=== PATIENT | male | born 1940 | race Caucasian/White ===

== ENCOUNTER → 2017-01-20 | Outpatient (CLI) | payer MEDICARE, OTHER ==
--- NOTE | 2017-01-20 14:51 | PCVCIMAG ---
EXAM: 1. MESENTERIC ARTERIAL DUPLEX 2. AORTOILIAC DUPLEX INDICATION: Upper abdominal fullness. Chronic mesenteric ischemia. Mesenteric atherosclerosis. FINDINGS: CELIAC AXIS: No flow limiting stenosis. No branch vessel stenosis. SUPERIOR MESENTERIC ARTERY: 80% stenosis proximal vessel. No branch vessel stenosis. INFERIOR MESENTERIC ARTERY: 40-50% stenosis proximal vessel. No branch vessel stenosis. Mesenteric veins are patent where seen. AORTA: Suprarenal aorta measures maximum diameter of 2.9 cm. There is not a fusiform infrarenal aortic aneurysm. The infrarenal aorta measures maximum diameter of 2.8 cm. No aortic stenosis. RIGHT COMMON ILIAC ARTERY: Maximum diameter is 1.1 cm. No significant stenosis. RIGHT EXTERNAL ILIAC ARTERY: No significant stenosis. LEFT COMMON ILIAC ARTERY: Maximum diameter is 1.3 cm. No significant stenosis. LEFT EXTERNAL ILIAC ARTERY: No significant stenosis. IMPRESSION: No abdominal aortic aneurysm. No aortoiliac stenosis seen. Ectasia of the infrarenal abdominal aorta measuring up to 2.8 cm in greatest dimension. 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 40-50% stenosis proximal inferior mesenteric artery. LOC:[place] [id number]
--- NOTE | 2017-01-20 20:12 | PCVCIMAG ---
APPROVED REPORT Study performed: 01/20/2017 15:08:52 EXAM: Comprehensive 2D, Doppler, and color-flow Echocardiogram Patient Location: Echo lab Status: routine BSA: 2.03 HR: 70 bpmBP: 126/72 mmHg Rhythm: NSR Other Information Study Quality: Adequate Indications Abnormal ECG Cardiomyopathy Hypertension/HDD Hx KS 2D Dimensions LVEF(%): 40.57 (>50%) IVSd: 9.76 (7-11mm)LVOT Diam: 22.06 (18-24mm) LVDd: 58.97 mm PWd: 8.51 (7-11mm) LVDs: 47.09 (25-40mm) Left Atrium: 39.11 (27-40mm) Aortic Root: 29.14 mm LV Single Plane 4CH: 63.90 % LV Single Plane 2CH: 60.15 %Lopez's LVEF: 62.03 % Biplane EF: 60.9 % Volumes Left Atrial Volume (Systole) Single Plane 4CH: 56.59 mLSingle Plane 2CH: 73.09 mL Biplane LA Volume: 68.00 mLLA ESV Index: 34.00 mL/m2 Aortic Valve AoV Peak Sam.: 1.60 m/s AO Peak Gr.: 10.26 mmHgLVOT Max P.19 mmHg LVOT Max V: 0.95 m/s CARINE Vmax: 2.26 cm2 AI Vmax: 3.68 m/s AI Emmons: 1.63 m/s2 AI PHT: 656.37 ms Mitral Valve E/A Ratio: 0.6 MV Decel. Time: 259.86 ms MV E Max Sam.: 0.65 m/s MV A Sam.: 1.15 m/s IVRT: 131.49 ms TDI E/Lateral E': 13.00E/Medial E': 16.25 Medial E' Sam.: 0.04 m/s Lateral E' Sam.: 0.05 m/s Pulmonary Valve PV Peak Sam.: 1.02 m/sPV Peak Gr.: 4.15 mmHg Pulmonary Vein P Vein S: 0.61 m/sP Vein A: 0.44 m/s P Vein D: 0.31 m/sP Vein A Dur.: 114.2 msec P Vein S/D Ratio: 1.97 Tricuspid Valve TR Peak Sam.: 2.57 m/s TR Peak Gr.: 26.43 mmHg TV Vmax: 0.62 m/sPA Pressure: 33.00 mmHg Left Ventricle Left ventricle is mildly dilated. There is normal LV segmental wall motion. There is normal left ventricular wall thickness. Akinesis of the basal-mid inferior wall is seen; consistent with known old KS. Left ventricular systolic function is normal. The left ventricular ejection fraction is within the normal range. LVEF is 60-65%. Grade I - abnormal relaxation pattern. Right Ventricle The right ventricle is normal size. The right ventricular systolic function is normal. Atria Left atrium is at the upper limits of normal. The right atrium size is normal. Aortic Valve Aortic valve is trileaflet. Aortic valve leaflets are sclerotic but open well. Mild aortic regurgitation. There is no aortic valvular stenosis. Mitral Valve There is moderate mitral annular calcification. Mitral valve leaflets are mildly sclerotic. Trace to mild mitral regurgitation. No evidence of mitral valve stenosis. Tricuspid Valve The tricuspid valve is normal in structure. Mild tricuspid regurgitation with a PA pressure of 33mmHg. Pulmonic Valve The pulmonary valve is normal in structure. There is no pulmonic valvular regurgitation. Great Vessels The aortic root is normal in size. The ascending aorta is normal in size. IVC is normal in size and collapses with >50% inspiration Pericardium There is no pericardial effusion. There is no pleural effusion. <Conclusion> LVEF is 60-65%. Left ventricular systolic function is normal. The left ventricular ejection fraction is within the normal range. Grade I - abnormal relaxation pattern. Left atrium is at the upper limits of normal. Aortic valve is trileaflet. Aortic valve leaflets are sclerotic but open well. There is moderate mitral annular calcification. Mitral valve leaflets are mildly sclerotic. Trace to mild mitral regurgitation. Mild tricuspid regurgitation with a PA pressure of 33mmHg. There is no pericardial effusion.
== END | disposition home or self-care (01) ==
LOC: PCVCIMAG 13:40
PROVIDERS: ATTEND Internal Medicine Cardiovascular Disease
DX: I08.3 Combined rheumatic disorders of mitral, aortic and tricuspid valves (principal); I10 Essential (primary) hypertension; R94.31 Abnormal electrocardiogram [ECG] [EKG]; K55.1 Chronic vascular disorders of intestine; K55.059 Acute (reversible) ischemia of intestine, part and extent unspecified; E78.5 Hyperlipidemia, unspecified; I25.2 Old myocardial infarction
CPT/HCPCS: 93306; 93975; 93978

== ENCOUNTER → 2017-02-02 | Outpatient (CLI) | payer MEDICARE, OTHER | END | disposition home or self-care (01) | LOC: PCVCCLINIC 15:35 | PROVIDERS: ATTEND Nuclear Medicine Nuclear Cardiology | DX: Z01.812 Encounter for preprocedural laboratory examination (principal); K55.1 Chronic vascular disorders of intestine; I77.1 Stricture of artery; I25.10 Atherosclerotic heart disease of native coronary artery without angina pectoris; I10 Essential (primary) hypertension; E78.00 Pure hypercholesterolemia, unspecified; F10.10 Alcohol abuse, uncomplicated | CPT/HCPCS: 36415; G0463 ==

== ENCOUNTER → 2017-02-04 | Outpatient (CLI) | payer MEDICARE, OTHER ==
[~2017-02-04] MED LIST: ASPIRIN 325 MG TABLET ONE; CLOPIDOGREL BISULFATE 75 MG TABLET ONE; DIAZEPAM 10 MG TABLET. ONE; EPTIFIBATIDE BOLUS 2,000 MCG/ML 10ML VIAL. IV ONE; HEPARIN SODIUM 5,000 UNIT/ML VIAL for PCVC. ONE; HEPARIN for ARTERIAL LINE 1,500 ML ONE; IOHEXOL 300 MG/ML 100ML VIAL. ONE; IOHEXOL 300 MG/ML 50 ML VIAL. ONE; IOHEXOL 350 MG/ML 100 ML VIAL. ONE; IV NORMAL SALINE 1000ML BAG 1,000 ML ONE; IV NORMAL SALINE 50ML 50 ML ONE; LIDOCAINE 1% Multi-Dose 20 ML VIAL. ONE; MIDAZOLAM HCL/PF 2 MG/2 ML VIAL. ONE; ceFAZolin SODIUM 1 GM VIAL ONE; fentaNYL PF VIAL 100 MCG/2 ML VIAL ONE; hydrALAZINE 20 MG/ML VIAL. ONE
--- NOTE | 2017-02-04 18:03 | PCVCINTER ---
EXAM: 1. AORTOGRAM AND BILATERAL ILIOFEMORAL ANGIOGRAPHY 2. BILATERAL RENAL ANGIOGRAPHY 3. COMPLETE MESENTERIC ANGIOGRAPHY 4. CELIAC STENT PLACEMENT 5. SUPERIOR MESENTERIC ARTERY STENT PLACEMENT INDICATION: Chronic mesenteric ischemia. Mesenteric atherosclerosis. Hypertension. Renal atherosclerosis. PROCEDURE: Procedure and risks of the procedures listed above were discussed with the patient and consent obtained. Risks including but not limited to bleeding, infection, stroke, vascular injury, neurologic injury, embolization, allergic reactions, bowel ischemia requiring resection, and contrast-induced nephropathy requiring dialysis were discussed as appropriate and consent obtained. Patient was placed on the angiography table. IV conscious sedation was utilized with appropriate monitoring from 12:30 PM through 2:00 PM. The right groin was prepped and draped in the normal sterile fashion. Ultrasound was used to interrogate the right groin and demonstrate the right common femoral artery. An ultrasound image was saved. Under ultrasound guidance a 21 gauge needle was used to gain access into the right common femoral artery and a 5F vascular sheath was placed. Catheter was placed into the suprarenal abdominal aorta and abdominal aortic angiogram performed. Catheter was placed into the distal abdominal aorta and bilateral iliofemoral angiography performed. Catheter was placed into the right renal arteries and right renal angiograms performed. Catheter was placed into the left renal arteries and left renal angiograms performed. Catheter was placed into the celiac axis and celiac angiogram performed. Catheter was placed in the superior mesenteric artery and SMA angiogram performed. Catheter was placed into the inferior mesenteric artery and JULIO angiogram performed. Stent placement across the area of high-grade stenosis in the celiac axis was performed with a 7 x 18 Palmaz blue stent with subsequent dilatation up to 8.0 mm. Stent placement across the area of stenosis in the proximal superior mesenteric artery was performed with a 6 x 24 Palmaz blue stent with subsequent dilatation to 8.[address] Bullock joined the procedure and he performed coronary angiography. Please see his separate dictation for details. Catheters and wires removed. Sheath was removed and hemostasis obtained using the FISH device. No immediate complications. FINDINGS: Aortogram: There is one right and one left renal artery. Moderate ectasia infrarenal abdominal aorta without high-grade stenosis. Bilateral iliofemoral angiography: Scattered plaque in both common iliac arteries without significant stenosis. Both external iliac arteries are patent. Both internal iliac arteries are patent. Moderate plaque in the common femoral artery does not cause significant stenosis. Visualized portions of the upper superficial femoral arteries are patent. Right renal artery: Minimal plaque proximal vessel does not cause significant stenosis. Left renal artery: Minimal plaque proximal vessel does not cause significant stenosis. Celiac axis: 80% stenosis proximal vessel. Distal branches are patent. Following stent placement good patency has been restored. Superior mesenteric artery: 80% irregular stenosis proximal superior mesenteric artery. Distal branches are patent. Following stent placement good patency has been restored. Inferior mesenteric artery: 70% focal stenosis at the origin of this vessel. Otherwise inferior mesenteric artery shows good patency throughout. 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 70% stenosis at the origin of the inferior mesenteric artery with this vessel otherwise showing good patency. follow up LOC:[id number]
== END | disposition home or self-care (01) ==
LOC: PCVCINTER 09:30
PROVIDERS: ATTEND Nuclear Medicine Nuclear Cardiology
DX: K55.1 Chronic vascular disorders of intestine (principal); I70.1 Atherosclerosis of renal artery; I10 Essential (primary) hypertension; E78.5 Hyperlipidemia, unspecified; E78.00 Pure hypercholesterolemia, unspecified; I25.10 Atherosclerotic heart disease of native coronary artery without angina pectoris
CPT/HCPCS: 36245; 36252; 37236; 37237; 75630; 75726; 76937; 93458; 99152; 99153; C1725; C1751; C1757; C1769; C1876; C1885; C1887; C1894; J0360; J0690; J1644; J2250; J3010; J7030; Q9967; J1327

== ENCOUNTER → 2017-08-31 | Outpatient (CLI) | payer MEDICARE, OTHER | END | disposition home or self-care (01) | LOC: PCVCIMAG 12:56 | DX: I25.10 Atherosclerotic heart disease of native coronary artery without angina pectoris (principal); I10 Essential (primary) hypertension; E78.00 Pure hypercholesterolemia, unspecified; K55.1 Chronic vascular disorders of intestine; I77.1 Stricture of artery; Z79.82 Long term (current) use of aspirin; Z79.899 Other long term (current) drug therapy | CPT/HCPCS: 93975; G0463 ==

== ENCOUNTER → 2017-09-06 | Outpatient (CLI) | payer MEDICARE, OTHER ==
[~2017-09-06] MED LIST changes: -ASPIRIN 325 MG TABLET ONE; -CLOPIDOGREL BISULFATE 75 MG TABLET ONE; +DIAZEPAM 10 MG TABLET.; -DIAZEPAM 10 MG TABLET. ONE; +EPINEPHrine 1 MG/ML VIAL; -EPTIFIBATIDE BOLUS 2,000 MCG/ML 10ML VIAL. IV ONE; +HEPARIN SODIUM 5,000 UNIT/ML VIAL for PCVC.; -HEPARIN SODIUM 5,000 UNIT/ML VIAL for PCVC. ONE; -HEPARIN for ARTERIAL LINE 1,500 ML ONE; +IOHEXOL 300 MG/ML 100ML VIAL.; -IOHEXOL 300 MG/ML 100ML VIAL. ONE; -IOHEXOL 300 MG/ML 50 ML VIAL. ONE; -IOHEXOL 350 MG/ML 100 ML VIAL. ONE; +IV NORMAL SALINE 1000ML BAG 1,000 ML; -IV NORMAL SALINE 1000ML BAG 1,000 ML ONE; -IV NORMAL SALINE 50ML 50 ML ONE; +LIDOCAINE 1% Multi-Dose 20 ML VIAL.; -LIDOCAINE 1% Multi-Dose 20 ML VIAL. ONE; +MIDAZOLAM HCL/PF 2 MG/2 ML VIAL.; -MIDAZOLAM HCL/PF 2 MG/2 ML VIAL. ONE; -ceFAZolin SODIUM 1 GM VIAL ONE; +fentaNYL PF VIAL 100 MCG/2 ML VIAL; -fentaNYL PF VIAL 100 MCG/2 ML VIAL ONE; -hydrALAZINE 20 MG/ML VIAL. ONE
== END ==
LOC: PCVCINTER 09:46
DX: I70.213 Atherosclerosis of native arteries of extremities with intermittent claudication, bilateral legs (principal); I70.1 Atherosclerosis of renal artery; K55.1 Chronic vascular disorders of intestine
CPT/HCPCS: 36245; 36252; 37236; 37237; 75630; 75726; 76937; 99153; C1713; C1725; C1751; C1769; C1894; J0171; J1644; J2250; J3010; J7030; Q9967

== ENCOUNTER → 2018-04-01 | Outpatient (CLI) | payer MEDICARE, OTHER ==
--- NOTE | 2018-04-01 09:42 | PCVCIMAG ---
EXAM: MESENTERIC ARTERIAL DUPLEX INDICATION: Mesenteric Atherosclerosis. FINDINGS: Celiac Hostetter: No flow limiting stenosis. No branch vessel stenosis. Superior Mesenteric Artery: No flow limiting stenosis. No branch vessel stenosis. Inferior Mesenteric Artery: No flow limiting stenosis. No branch vessel stenosis. Mesenteric veins are patent where seen. AORTA: Suprarenal aorta measures maximum diameter of 3.3 cm. There is a fusiform infrarenal aortic aneurysm. The infrarenal aorta measures maximum diameter of 2.9 x 3.2 cm. No aortic stenosis. IMPRESSION: Previous celiac and superior mesenteric artery stent grafts remaining widely patent. No flow-limiting stenosis in the inferior mesenteric artery. Incidental note is made of a 3.2 cm infrarenal abdominal aortic aneurysm. LOC:[id number]
== END | disposition home or self-care (01) ==
LOC: PCVCIMAG 08:21
PROVIDERS: ATTEND Nuclear Medicine Nuclear Cardiology
DX: K55.1 Chronic vascular disorders of intestine (principal); I10 Essential (primary) hypertension; I25.10 Atherosclerotic heart disease of native coronary artery without angina pectoris; E78.00 Pure hypercholesterolemia, unspecified; I71.4 Abdominal aortic aneurysm, without rupture; Z79.82 Long term (current) use of aspirin
CPT/HCPCS: 93975; G0463

== ENCOUNTER → 2018-08-04 | Outpatient (CLI) | payer MEDICARE, OTHER ==
[~2018-08-04] MED LIST changes: -DIAZEPAM 10 MG TABLET.; -EPINEPHrine 1 MG/ML VIAL; -HEPARIN SODIUM 5,000 UNIT/ML VIAL for PCVC.; -IOHEXOL 300 MG/ML 100ML VIAL.; -IV NORMAL SALINE 1000ML BAG 1,000 ML; -LIDOCAINE 1% Multi-Dose 20 ML VIAL.; -MIDAZOLAM HCL/PF 2 MG/2 ML VIAL.; +REGADENOSON 0.4 MG/5 ML DISP.SYRIN. IV ONE; -fentaNYL PF VIAL 100 MCG/2 ML VIAL
--- NOTE | 2018-08-08 16:37 | PCVCIMAG ---
APPROVED REPORT Imaging Protocol: Rest Tc-99m/Stress Tc-99m 1 day Study performed: 08/04/2018 13:21:12 Indication: CAD, Stable Angina Patient Location: Out-Patient Stress Nurse: Jo Ann RN, Sandy Burrell RN NM Tech:Javier WhittakerRICARDAB Ht: 6 ft 1 in Wt: 180 lbs BSA: 2.06 m2 HR: 56 bpm BP: 170/75 mmHg BMI: 23.7 Rhythm: Sinus Bradycardia, LVH, RBBB Medical History Medical History: Age, Hyperlipidemia, HTN, PVD Medications: ASA, Plavix, Bystolic, Protonix, Crestor, Travatan, Allergies: No known drug allergies Previous Cardiac Procedures: Cath 2017 Exercise History: Sedentary Physical Disabilities: Knees Meds Held (24 hrs): Bystolic Resting Data Rest SPECT myocardial perfusion imaging was performed in supine position 45 minutes following the intravenous injection of 10.5 mCi of Tc-99m Sestamibi. Time of rest injection: 1240 Date: 08/04/2018 Administration Route: IV Administration Site: Right AC Pharmacologic Stress Pharmacologic stress test was performed by injecting Regadenoson 0.4 mg IV push over 10-15 seconds immediately followed by the intravenous injection of 32 mCi of Tc-99m Sestamibi. Time of stress injection: 1350 Date: 08/04/2018 Administration Route: IV Administration Site: Right AC Gated Stress SPECT was performed 45 minutes after stress injection. The images were gated to evaluate regional wall motion and calculate left ventricular ejection fraction. Stress Test Details Stress Test: Pharmacologic stress testing performed using 0.4 mg of regadenoson per 5 mL given IV over 10 seconds. Reason for pharmacologic stress test: Knee Problems. HRMax Heart Rate (APMHR): 144 bpm Resting HR: 56 bpmTarget HR (85% APMHR): 122 bpm Max HR Achieved: 73 bpm % of APMHR: 50 Recovery HR: 62 bpm BP Resting BP: 170/75 mmHg Max BP: 175/80 mmHg Recovery BP: 160/76 mmHg ECG Resting ECG: Sinus Bradycardia, RBBB, LAFB Stress ECG: Sinus Rhythm, RBBB, LAFB Arrhythmia: PVC's Recovery ECG: Sinus Rhythm, RBBB, LAFB Clinical Reason for Termination: Completed protocol Stress Symptoms: Dyspnea Exercise duration: min 55 sec Symptoms resolved during recovery. Stress ECG Conclusion ECG: Non-ischemic Study Quality Study: Good Study Data Post stress, the left ventricular ejection was 48%.. SSS: 24 SRS: 23 SDS: 5 TID = 1.26. 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 Post stress, the left ventricular ejection was 48%. No change since prior study dated February 2016. Interpreted by: Demterius Ratliff MD Electronically Approved: 08/04/2018 16:36:39 <Conclusion> ECG: Non-ischemic
== END | disposition home or self-care (01) ==
LOC: PCVCIMAG 12:26
PROVIDERS: ATTEND Internal Medicine Cardiovascular Disease
DX: I25.118 Atherosclerotic heart disease of native coronary artery with other forms of angina pectoris (principal); E78.5 Hyperlipidemia, unspecified; I10 Essential (primary) hypertension
CPT/HCPCS: 78452; 93017; A9500; J2785

== ENCOUNTER → 2018-10-05 | Outpatient (CLI) | payer MEDICARE, OTHER ==
--- NOTE | 2018-10-05 14:57 | PCVCIMAG ---
APPROVED REPORT Indications Stenosis Doppler Spectral Velocity Analysis PSV / EDVPSV / EDV ECA (R) 86 / 0 cm/sECA (L) 68 / 0 cm/s dICA (R) 48 / 14 cm/sdICA (L) 59 / 13 cm/s Ana (R) 52 / 13 cm/smICA (L) 78 / 19 cm/s pICA (R) 107 / 14 cm/spICA (L) 56 / 8 cm/s Bulb (R) 133 / 12 cm/sBulb (L) 71 / 10 cm/s dCCA (R) 245 / 15 cm/sdCCA (L) 74 / 13 cm/s mCCA (R) 92 / 9 cm/smCCA (L) 84 / 13 cm/s Vert (R) 53 / 10 cm/sVert (L) 44 / 6 cm/s ICA/CCA 0.44 ICA/CCA 1.05 Findings The right carotid bulb has moderate calcified plaque. The right proximal internal carotid artery shows <40% stenosis. The right common carotid artery shows 60-70% stenosis. The right external carotid artery shows no significant stenosis. The left carotid bulb has moderate plaque. The left proximal internal carotid artery shows <40% stenosis. The left common carotid artery shows 40-50% stenosis. The left external carotid artery shows no significant stenosis. Conclusion 1. Right internal carotid artery stenosis (<40%) 2. Right common carotid artery stenosis (60-70%) 3. Left internal carotid artery stenosis (<40%) 4. Left common carotid artery stenosis (40-50%) 5. Antegrade vertebral flow
--- NOTE | 2018-10-05 16:15 | PCVCIMAG ---
EXAM: AORTOILIAC DUPLEX INDICATION: Abdominal aortic aneurysm FINDINGS: AORTA: Suprarenal aorta measures maximum diameter of 2.9 cm. There is a fusiform infrarenal aortic aneurysm. The infrarenal aorta measures maximum diameter of 2.9 x 3.2 cm. No aortic stenosis. RIGHT COMMON ILIAC ARTERY: Maximum diameter is 1.4 cm. No significant stenosis. RIGHT EXTERNAL ILIAC ARTERY: No significant stenosis. LEFT COMMON ILIAC ARTERY: Maximum diameter is 1.5 cm. No significant stenosis. LEFT EXTERNAL ILIAC ARTERY: No significant stenosis. IMPRESSION: 3.2 cm infrarenal abdominal aortic aneurysm. LOC:[id number]
--- NOTE | 2018-10-05 16:16 | PCVCIMAG ---
EXAM: MESENTERIC ARTERIAL DUPLEX INDICATION: Mesenteric Atherosclerosis. FINDINGS: Celiac Mcnary: No flow limiting stenosis. No branch vessel stenosis. Superior Mesenteric Artery: No flow limiting stenosis. No branch vessel stenosis. Inferior Mesenteric Artery: No flow limiting stenosis. No branch vessel stenosis. Mesenteric veins are patent where seen. IMPRESSION: No flow limiting mesenteric arterial stenosis. Previous superior mesenteric artery stent maintaining satisfactory patency. LOC:[id number]
== END | disposition home or self-care (01) ==
LOC: PCVCIMAG 12:40
PROVIDERS: ATTEND Internal Medicine Cardiovascular Disease
DX: I65.23 Occlusion and stenosis of bilateral carotid arteries (principal); I71.4 Abdominal aortic aneurysm, without rupture; K55.1 Chronic vascular disorders of intestine; I25.10 Atherosclerotic heart disease of native coronary artery without angina pectoris; E78.00 Pure hypercholesterolemia, unspecified; I10 Essential (primary) hypertension; I49.3 Ventricular premature depolarization; I45.10 Unspecified right bundle-branch block; Z87.891 Personal history of nicotine dependence; Z79.82 Long term (current) use of aspirin
CPT/HCPCS: 36415; 80061; 93005; 93880; 93975; 93978; G0463

== ENCOUNTER → 2019-04-12 | Outpatient (CLI) | payer MEDICARE, OTHER | END | disposition home or self-care (01) | LOC: PCVCCLINIC 15:29 | PROVIDERS: ATTEND Internal Medicine Cardiovascular Disease | DX: I25.10 Atherosclerotic heart disease of native coronary artery without angina pectoris (principal); I10 Essential (primary) hypertension; I45.10 Unspecified right bundle-branch block; R94.31 Abnormal electrocardiogram [ECG] [EKG]; E78.00 Pure hypercholesterolemia, unspecified; K55.1 Chronic vascular disorders of intestine; I71.4 Abdominal aortic aneurysm, without rupture; Z90.49 Acquired absence of other specified parts of digestive tract; Z96.652 Presence of left artificial knee joint; Z87.891 Personal history of nicotine dependence; Z72.89 Other problems related to lifestyle; Z79.82 Long term (current) use of aspirin; Z79.899 Other long term (current) drug therapy | CPT/HCPCS: 36415; 80061; 93005; G0463 ==